=== PATIENT | female | born 1995 | race Caucasian/White ===

== ENCOUNTER 2020-02-06 11:17 | Emergency (ER) | payer OTHER, SELFPAY ==
[2020-02-06 11:19] VITALS: BP 126/70; PULSE 89; RESP 16; TEMP 36.7; O2SAT 100
--- NOTE | 2020-02-06 11:24 | ED.BACK ---
HPI - Back Pain/Injury General Chief Complaint: Back Pain/Injury Stated Complaint: Rib injury Time Seen by Provider: 02/06/20 11:24 Source: patient Mode of arrival: ambulatory Limitations: no limitations History of Present Illness HPI Narrative: A 24 y/o female presents to the ED with c/o left shoulder blade pain that she describes as stabbing in character. Pt has a history of rib displacement and pt thinks that she has displaced another rib. Pt normally sees her chiropractor in regards to these complaints but his office is closed today. Pt's pain began after she got out of bed too fast this morning. Pt tried to do some exercises recommended by her chiropractor with no relief. She reports left arm tingling, but denies CP and SOB. Pertinent past history: other (rib displacement) Onset (ago): hour(s) Similar Symptoms Previously: Yes Quality: stabbing Related Data Home Medications Medication Instructions Recorded Confirmed etonogestrel [Nexplanon] 1 implant SUBDERMAL ONCE 02/06/20 oxycodone 5 mg PO Q4H PRN 02/06/20 Allergies Allergy/AdvReac Type Severity Reaction Status Date / Time amoxicillin Allergy Diarrhea Verified 02/06/20 11:25 Review of Systems Review of Systems: All systems reviewed & are unremarkable except as noted in HPI and below Cardiovascular: Cardiovascular: Denies chest pain Respiratory: Respiratory: Denies dyspnea Musculoskeletal: Comments: Reports: left shoulder blade pain Neurologic: Comments: Reports: left arm tingling PMFSH Social History Social History (Updated 02/06/20 @ 11:45 by Ankita Quintero) Smoking status: Never smoker Gender identity (if verbalized by the patient): Female Comments No significant PMHx. No PCP on file. Exam Const: General: healthy appearing, no acute distress and alert Orientation/consciousness: patient oriented x3 HENMT: Head: normal to inspection Resp: Effort & Inspection: normal respiratory effort Back/Spine/Pelvis: Other: Tenderness at the medial border of the left scapula with mild muscle spasm. Skin: General skin exam: normal color Rashes: no rashes Wounds: no wounds Neuro: General: patient oriented x3, moves all extremities and no focal motor deficits Speech: normal speech Course Vital Signs Vital signs: Vital Signs Temperature 36.7 C 02/06/20 11:19 Pulse Rate 89 02/06/20 11:19 Respiratory Rate 16 02/06/20 11:19 Blood Pressure 126/70 02/06/20 11:19 Pulse Oximetry 100 02/06/20 11:19 Temperature 36.7 C 02/06/20 11:19 Pulse Rate 89 02/06/20 11:19 Respiratory Rate 16 02/06/20 11:19 Blood Pressure 126/70 02/06/20 11:19 Pulse Oximetry 100 02/06/20 11:19 MDM - Back Pain/Injury MDM Narrative Medical decision making narrative: Feeling better with muscle relaxer and NSAID. Discharge Plan Discharge Clinical Impression: Spasm of thoracic back muscle Patient Disposition: Home, Self-Care Condition: Stable Instructions: Muscle Spasm (ED) Prescriptions: No Action oxycodone 5 mg Tablet 5 mg PO Q4H PRN (Reason: Pain) RF: 0 Nexplanon 68 mg Implant 1 implant SUBDERMAL ONCE RF: 0 Follow-up/Referrals: PHYSICIAN,[employer] OPERATOR [Primary Care Provider] - Discharge Date/Time: 02/06/20 13:11
[2020-02-06] MEDS: CYCLOBENZAPRINE HCL 10 MG TABLET PO (11:36)
[2020-02-06] MEDS: KETOROLAC (*BKC) 60 MG/2 ML VIAL IM (11:39)
== END 2020-02-06 13:11 | disposition home or self-care (01) ==
PROVIDERS: Emergency Provider Emergency Medicine
DX: M62.830 Muscle spasm of back (principal)
CPT/HCPCS: 96372; 99283; A9270; J1885